=== PATIENT | male | born 1985 | race Caucasian/White ===

== ENCOUNTER → 2018-10-31 13:42 | Outpatient (CLI) | payer OTHER, SELFPAY ==
--- NOTE | 2018-10-31 | DI.US.S_ITS ---
PROCEDURE: US PERIPH VENOUS LOW EXTREM BI INDICATIONS: EDEMA TECHNIQUE: Real-time imaging, as well as color and pulse Doppler interrogation, were performed of the deep veins of both legs from the inguinal ligament to the popliteal fossa. COMPARISON: None. FINDINGS: The deep veins are normally compressible, and free of intraluminal thrombus. Color and pulse Doppler demonstrate normal phasic intravascular flow. There is normal augmentation response to distal compression maneuver. IMPRESSION: No evidence of bilateral lower extremity deep vein thrombosis. Dictated by: Saman Mijares M.D. on 10/31/2018 at 16:25 Approved by: Saman Mijares M.D. on 10/31/2018 at 16:25
--- NOTE | 2018-10-31 | DI.ECHO.S_ITS ---
[facility]+ [facility] +---------+ : : [address] : [place] : : : : [id number] : : : : Phone: [phone]+ Echocardiogram Report + + :Name: LIZ FONSECA Study Date: 10/31/2018 Height: 77 in : :[facility] Exam Location: [facility] Weight: 450 lb : : Gender: Male BSA: 3.2 m2 : :: 1985 Age: 33 yrs BP: 118/80 mmHg: :Reason For Study: Edema/Tachycardia : : Performed By: Lisa Osullivan : :Referring: JUANA HUMMEL : + + Interpretation Summary Technically challenging echocardiogram due to patient body habitus. The left ventricle is normal in size. The ejection fraction is estimated to be 55-60%. Regional wall motion abnormalities cannot be excluded due to limited visualization. Right ventricle was not well visualized. No significant valvular pathology seen. The IVC is of normal diameter and collapses greater than 50% with a sniff. This suggests a low right atrial pressure of 3 mm Hg. Procedure: A two-dimensional transthoracic echocardiogram with color flow and Doppler was performed. Technically challenging echocardiogram due to patient body habitus. Most of the acoustic windows were suboptimal, but the best imaging was obtained from the parasternal window. There is no prior echocardiogram noted for this patient. A contrast injection of Definity was performed to improve assessment of LV function. The patient was in normal sinus rhythm during the exam. Left Ventricle: The left ventricle is normal in size. Left ventricular wall thickness is normal. There is no thrombus. The ejection fraction is estimated to be 55-60%. Regional wall motion abnormalities cannot be excluded due to limited visualization. Diastolic parameters suggest probable normal left ventricular diastolic function and normal filling pressures. Right Ventricle: The right ventricle is not well visualized. Right ventricular function cannot be assessed due to poor image quality. Atria: The left atrium grossly appears normal in size. The right atrium grossly appears normal in size. Mitral Valve: The mitral valve is grossly normal. There is no mitral regurgitation. Aortic Valve: The aortic valve is trileaflet. The aortic valve opens well. There is no aortic valve stenosis. No aortic regurgitation is present. Tricuspid Valve: The tricuspid valve is not well visualized. There is a trace or physiologic amount of tricuspid regurgitation. Pulmonary artery pressures cannot be estimated because of the lack of a measurable TR jet velocity. Pulmonic Valve: The pulmonic valve is not well visualized. Great Vessels: The aortic root is normal size. The ascending aorta is normal in size. The IVC is of normal diameter and collapses greater than 50% with a sniff. This suggests a low right atrial pressure of 3 mm Hg. Pericardium/ Pleura There is no pericardial effusion. There is an anterior echo-free space consistent with a fat pad. There is no pleural effusion. MMode/2D Measurements & Calculations LVIDd: 5.7 cm LVOT diam: 2.5 cm LVIDs: 3.6 cm Ao root diam: 3.7 cm FS: 37.6 % asc Aorta Diam: 3.6 cm EPSS: 1.0 cm Ao Arch Diam (Prox Trans): 2.9 cm IVSd: 1.0 cm LVPWd: 1.2 cm LV villanueva. diameter/BSA (cm/m^2): 1.8 LV sys. diameter/BSA (cm/m^2): 1.1 TAPSE: 2.5 cm Doppler Measurements & Calculations Ao V2 max: 105.3 cm/sec LVOT Max Mati: 78.4 cm/sec Ao V2 mean: 79.0 cm/sec LV V1 max P.5 mmHg Ao max P.4 mmHg LV V1 VTI: 17.2 cm Ao mean P.6 mmHg RAYSHAWN(I,D): 4.0 cm2 Ao V2 VTI: 20.6 cm RAYSHAWN(V,D): 3.6 cm2 sev ratio: 0.84 RAYSHAWN indexed to BSA (cm^2/m^2): 1.3 MV E max mati: 76.8 cm/sec PA V2 max: 74.1 cm/sec MV A max mati: 43.0 cm/sec PA V2 mean: 46.8 cm/sec MV E/A: 1.8 PA mean P.0 mmHg MV dec time: 0.15 sec PA pr(Accel): 6.6 mmHg SV(LVOT): 83.3 ml Reading Physician:[email or web address]
== END ==
PROVIDERS: Visit Provider Student in an Organized Health Care Education/Training Program
DX: R00.0 Tachycardia, unspecified (principal); R60.9 Edema, unspecified
CPT/HCPCS: 93306; 93970

== ENCOUNTER → 2020-02-19 10:20 | Outpatient (CLI) | payer OTHER, SELFPAY ==
[2020-02-20 09:38] LABS: COVID19 Sendout Not Detected (Not Detect)
== END ==
PROVIDERS: Visit Provider Physician Assistant
DX: Z01.812 Encounter for preprocedural laboratory examination (principal)
CPT/HCPCS: 87635